=== PATIENT | female | born 1990 | race African-American/Black ===

== ENCOUNTER 2023-11-09 06:49 | Outpatient (CLI) | payer OTHER, SELFPAY ==
--- NOTE | ~2023-11-09 | MR_ITS ---
EXAMINATION: MR knee LT wo con DATE: 11/09/2023 07:47 INDICATION: Internal derangement of the left knee TECHNIQUE: Magnetic resonance imaging (MRI) of the left knee was performed without intravenous contra st. Sequences included coronal PD-weighted FSE, coronal PD-weighted FS FSE, sagittal T2-weighted FSE , sagittal PD-weighted FS FSE and axial PD weighted fat saturated FSE. COMPARISON: None. FINDINGS: Medial compartment: Medial meniscus is normal. Mild shallow chondral fissuring along the anterior to central weightbearin g medial femoral condyle. Lateral compartment: Lateral meniscus is normal. Articular cartilage is normal. Patellofemoral compartment: Deep chondral fissure with tiny focus of underlying subarticular edema-like signal change at the infe rior aspect of the medial trochlea. Ligaments and tendons: Anterior and posterior cruciate ligaments are normal. The medial collateral ligament and fibular dorian ateral ligament complex are normal. The extensor mechanism is normal. The visualized medial and later al hamstring tendons as well as the iliotibial band are normal. Fluid: Physiologic amount of fluid in the joint space. No loose osteochondral bodies identified. Osseous/other: Aside from the previous noted small focus of subarticular edema-like signal change is normal marrow s ignal throughout with no fracture or pathologic marrow replacing process. Mild increased fluid signal along the superficial margin of the patellar tendon without discrete bursal fluid collection. IMPRESSION: 1. Shallow chondral fissuring along the weightbearing medial femoral condyle and small focus of high- grade chondromalacia with deep chondral fissuring and underlying edema-like signal change at the medi al trochlea. 2. Normal menisci, stabilizing ligaments and tendons of the knee. Reviewed, dictated and finalized at location A. IMPRESSION: 1. Shallow chondral fissuring along the weightbearing medial femoral condyle an d small focus of high-grade chondromalacia with deep chondral fissuring and und erlying edema-like signal change at the medial trochlea. 2. Normal menisci, stabilizing ligaments and tendons of the knee.
== END 2023-11-09 06:50 | disposition home or self-care (01) ==
PROVIDERS: PCP Family Medicine; Visit Provider Physician Assistant
DX: M25.562 Pain in left knee (principal); M23.92 Unspecified internal derangement of left knee
CPT/HCPCS: 73721